=== PATIENT | male | born 1985 | race Caucasian/White ===

== ENCOUNTER 2017-06-01 19:25 | Emergency (ER) | payer OTHER ==
--- NOTE | 2017-06-01 19:44 | EDPHY ---
H & P Time Seen by Provider: 06/01/17 19:38 HPI/ROS: CHIEF COMPLAINT: Cough, sore throat, itchy ears HISTORY OF PRESENT ILLNESS: Patient is a 31-year-old man who was here in the emergency department with both of his sons all with similar symptoms. Patient complains of a sore throat and dry cough that began 2 days ago. Also is beginning to have some fullness in itchiness in his ears. No fevers. No body aches. He is up-to-date on his flu vaccine. He does complain of sinus congestion. REVIEW OF SYSTEMS: Constitutional: See HPI EENTM: See HPI Respiratory: denies: cough, shortness of breath Cardiac: denies: chest pain, irregular heart rate, lightheadedness, palpitations Gastrointestinal/Abdominal: denies: abdominal pain, diarrhea, nausea, vomiting, blood streaked stools Genitourinary: denies: dysuria, frequency, hematuria, pain Musculoskeletal: denies: joint pain, muscle pain Skin: denies: lesions, rash, jaundice, bruising Neurological: denies: headache, numbness, paresthesia, tingling, dizziness, weakness Hematologic/Lymphatic: denies: blood clots, easy bleeding, easy bruising Immunologic/allergic: denies: HIV/AIDS, transplant EXAM: GENERAL: Well-appearing, well-nourished and in no acute distress. HEAD: Atraumatic, normocephalic. EYES: Pupils equal round and reactive to light, extraocular movements intact, sclera anicteric, conjunctiva are normal. ENT: TMs normal, nares patent, oropharynx erythematous without exudates. Moist mucous membranes. NECK: Normal range of motion, supple without lymphadenopathy or JVD. LUNGS: Breath sounds clear to auscultation bilaterally and equal. No wheezes rales or rhonchi. HEART: Regular rate and rhythm without murmurs, rubs or gallops. ABDOMEN: Soft, nontender, normoactive bowel sounds. No guarding, no rebound. No masses appreciated. BACK: No CVA tenderness, no spinal tenderness, step-offs or deformities EXTREMITIES: Normal range of motion, no pitting or edema. No clubbing or cyanosis. NEUROLOGICAL: Cranial nerves II through XII grossly intact. Normal speech, normal gait. 5/5 strength, normal movement in all extremities, normal sensation PSYCH: Normal mood, normal affect. SKIN: Warm, dry, normal turgor, no visible rashes or lesions. Source: Patient Exam Limitations: No limitations - Personal History Tetanus Vaccine Date: within 10 years - Medical/Surgical History Hx Asthma: No Hx Chronic Respiratory Disease: No Hx Diabetes: No Hx Cardiac Disease: No Hx Renal Disease: No Hx Cirrhosis: No Hx Alcoholism: No Hx HIV/AIDS: No Hx Splenectomy or Spleen Trauma: No Other PMH: none - Family History Significant Family History: No pertinent family hx - Social History Smoking Status: Never smoked Alcohol Use: Sober Drug Use: None Constitutional: Initial Vital Signs Temperature (C) 37.2 C 06/01/17 19:55 Heart Rate 88 06/01/17 19:55 Respiratory Rate 16 06/01/17 19:55 Blood Pressure 148/77 H 06/01/17 19:55 O2 Sat (%) 97 06/01/17 19:55 O2 Delivery Mode Room Air Allergies/Adverse Reactions: No Known Allergies Allergy (Verified 06/01/17 19:54) Home Medications: Medication Instructions Recorded NO HOME MEDS 08/23/09 Guaifen/Dextromethorphan/PE 5 - 10 ml PO BID #266 ml 06/01/17 [Mucinex Fast-Max Congest-Cough] Medical Decision Making ED Course/Re-evaluation: We discussed the test results. I suspect that this is viral. I will treat the patient with cough syrup, also encouraged rest, hydration and antipyretics. Patient understands and agrees. Differential Diagnosis: Partial list of the Differential diagnosis considered include but were not limited to; viral syndrome, strep throat and although unlikely based on the history and physical exam, I also considered influenza, meningitis, sepsis. I discussed these differential diagnoses and the plan with the patient as well as the usual and expected course. The patient understands that the diagnosis is provisional and that in medicine we are not always correct and that further workup is often warranted. Usual and customary warnings were given. All of the patient's questions were answered. The patient was instructed to return to the emergency department should the symptoms at all worsen or return, otherwise to followup with the physician as we discussed. - Data Points Laboratory Results: 06/01/17 06/01/17 Unknown 19:48 Group A Strep Screen NEGATIVE (NEGATIVE) Group A Strep DNA Pending Departure - Departure Disposition: Home, Routine, Self-Care Clinical Impression: Viral syndrome Condition: Fair Instructions: Viral Syndrome (ED) Referrals: Devan Mckay MD [Medical Doctor] - As per Instructions Stand Alone Forms: Work Excuse Prescriptions: Guaifen/Dextromethorphan/PE [Mucinex Fast-Max Congest-Cough] 5 - 10 ml PO BID # 266 ml
[2017-06-01 19:59] VITALS: BP 148/77; PULSE 88; RESP 16; TEMP 99; O2SAT 97
== END 2017-06-01 20:42 | disposition home or self-care (01) ==
LOC: CED 19:25
DX: B34.9 Viral infection, unspecified (principal)
CPT/HCPCS: 87880-PO

== ENCOUNTER 2017-06-19 15:30 | Emergency (ER) | payer OTHER ==
[2017-06-19 15:41] VITALS: BP 141/84; PULSE 76; RESP 18; TEMP 99.1; O2SAT 97
--- NOTE | 2017-06-19 15:56 | EDPHY ---
H & P Time Seen by Provider: 06/19/17 15:43 HPI/ROS: CHIEF COMPLAINT: Sinus pain and sore throat HISTORY OF PRESENT ILLNESS: Patient was seen in our emergency department June 01 and had negative strep testing with similar symptoms and was discharged with viral syndrome. He is working 50 hr a week and also spending a lot of time with a relative with disability. Patient presents with right earache and sore throat for 2-3 days, associated with some congestion around the bridge of his nose and his face and forehead. Not associated with cough or neck stiffness or fever or chills. No shortness of breath. Describes intermittent headaches which are better with 600 mg ibuprofen. REVIEW OF SYSTEMS: No dental symptoms, no vomiting or diarrhea, no stiff neck. PAST MEDICAL HISTORY: Negative otherwise healthy Social history: Works at [employer] General Appearance: Alert and conversant, cooperative. No facial swelling or sinus tenderness to palpation. Normal tympanic membranes bilaterally. External canals normal, no mastoid swelling or tenderness on either side. Right tonsil larger than the left but no trismus stridor or drooling. No pharyngeal erythema or exudate. Uvula midline. No gum swelling or dental abnormalities visualized. No cervical lymphadenopathy. Normal range of motion of the neck, supple. Breath sounds equal, no rhonchi or rales or focal lung sounds. Normal voice. Regular rate and rhythm no murmur. Emergency Department course/MDM: Patient is requesting antibiotics; I discussed with him that I do not find on evaluation evidence of acute bacterial infection. My clinical impression is that the potential risks of antibiotics including but not limited to diarrheal illness or Clostridium difficile or allergic reaction outweigh potential benefit in his case. Discussed decongestant, nonsteroidal, outpatient referral. Smoking Status: Never smoked Constitutional: Initial Vital Signs Temperature (C) 37.3 C 06/19/17 15:39 Heart Rate 76 06/19/17 15:39 Respiratory Rate 18 06/19/17 15:39 Blood Pressure 141/84 H 06/19/17 15:39 O2 Sat (%) 97 06/19/17 15:39 O2 Delivery Mode Room Air Allergies/Adverse Reactions: No Known Allergies Allergy (Verified 06/01/17 19:54) Home Medications: Medication Instructions Recorded NK [No Known Home Meds] 06/19/17 MDM/Departure - Depart Disposition: Home, Routine, Self-Care Clinical Impression: Viral syndrome, Head cold Condition: Good Instructions: Viral Syndrome (ED) Additional Instructions: Oral regular Sudafed and 600 mg ibuprofen every 8 hr for the next 3 days. Primary care referral. Referrals: Vania Sheets DO [Doctor of Osteopathy] - As per Instructions
== END 2017-06-19 16:10 | disposition home or self-care (01) ==
LOC: CED 15:30
DX: B34.9 Viral infection, unspecified (principal)

== ENCOUNTER → 2017-10-18 | Outpatient (CLI) | payer OTHER | LOC: SBRMNEURO 23:18 | PROVIDERS: ATTEND Internal Medicine Pulmonary Disease | DX: G47.33 Obstructive sleep apnea (adult) (pediatric) (principal) ==